=== PATIENT | male | born 1975 | race Caucasian/White ===

== ENCOUNTER 2022-01-27 10:39 | Emergency (ER) | payer OTHER ==
[~2022-01-27 10:39] MED LIST: ALEVE220 MG PO; BACTRIM DS TAB1 EACH PO; KEFLEX CAP 500500 MG PO; LISINOPRIL10 MG PO; NAPROSYN500 MG PO; NORCO 10-325 T1 EACH PO
[2022-01-27] MEDS ORDERED: BACITRACIN28.4 GM TP (12:43)
[2022-01-27] MEDS ORDERED: CEPHALEXIN500 MG PO (12:43)
== END 2022-01-27 13:00 | disposition home or self-care (01) ==
LOC: ER1 10:39
DX: L55.2 Sunburn of third degree (principal); E11.9 Type 2 diabetes mellitus without complications; F17.210 Nicotine dependence, cigarettes, uncomplicated
CPT/HCPCS: 99282